=== PATIENT | male | born 1990 | race Asian ===

== ENCOUNTER 2018-12-26 14:28 | Emergency (ER) | payer OTHER ==
[~2018-12-26] VITALS: Ht 180.3 cm; Wt 65.8 kg
[2018-12-26 14:29] VITALS: BP 113/71
== END 2018-12-26 15:25 | disposition home or self-care (01) ==
LOC: ER 14:28
DX: R53.83 Other fatigue (principal)

== ENCOUNTER 2021-03-27 21:50 | Emergency (ER) | payer OTHER ==
[~2021-03-27] VITALS: Ht 177.8 cm; Wt 68.0 kg
--- NOTE | ~2021-03-27 | EMS ---
[facility] [address] [place] [address] EMS Patient Care Report Name: XENA HARRIS Room #: PRE ER M.R.#: [id number] Admission: Attend Phys: Discharge: Date of : 86 Report #: [id number] THIS REPORT FOR: //name// Report Transmitted: 03/27/2021 21:34 EMS Care Summary [place], [place] Incident [id number] @ 03/27/2021 21:22 Incident Location [address] Patient XENA HARRIS Male, 31 Years 1990 Patient Address [address] [place] [address] Chief Complaint N/V Disposition Transported No Lights/[place] Dis[place] Reason Sick Person Transported To [facility] Narrative pt found standing in front of [employer]. 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 pt went to work and took the bus to [employer] after work. he was in bathroom at [employer] and had employees call 911 for him. pt req eval at [facility]. he seats self in unit, transport w/o change. no vomiting while w/ pt. Initial Vitals @21:36P: 79,R: 20,BP: 129/84,Pain: 0/10,GCS: 15,Temp: 98.1F,SpO2: 99,Revised Trauma: 12, Assessments @21:35MENTAL:No Abnormalities,SKIN:No Abnormalities,HEENT:Head/Face: No Abnormalities,LUNG SOUNDS:General: Vomiting,General: Nausea,ABDOMEN:General: [facility] [address] [place] [address] EMS Patient Care Report Name: XENA HARRIS Room #: PRE ER M.R.#: [id number] Admission: Attend Phys: Discharge: Date of : 86 Report #: [id number] Vomiting,General: Nausea,PELVIS//GI:EXTREMITIES:PULSE:Radial: 2+ Normal,NEURO:No Abnormalities, Impression Vomiting Procedures @21:35ALS AssessmentResponse: Unchanged Timeline 21:20,Call Received 21:20,Dispatch Notified 21:22,Dispatched 21:23,En Route 21:34,On Scene 21:35,At Patient 21:35,ALS Assessment,Response: Unchanged 21:36,BP: 129/84 M,PULSE: 79,RR: 20 R,SPO2: 99 Ox,ETCO2: ,BG: ,PAIN: 0,GCS: 15, 21:37,Depart Scene 21:46,At Destination 21:59,Call Closed Disclaimer [email or web address] Copyright 2020 [employer] This EMS Care Summary contains data elements from the applicable legal record (which may be displayed differently). It is designed to provide pertinent information for the following purposes: continuity of care, clinical quality, and state data reporting. The complete legal record is available to ED staff and administrators of the receiving hospital in [employer]'s Patient Tracker. All data is provided "as is."
[2021-03-27 22:26] LABS: ABSOLUTE NEUTROPHILS 7.4 thou/uL (1.4-8.2); BASOPHILS 0.7 % (0.0-2.0); EOSINOPHILS 1.8 % (0.0-3.0); HEMATOCRIT 36.5 % (42.0-52.0); HEMOGLOBIN 12.2 gm/dL (14.0-18.0); LYMPHOCYTES 21.6 % (24.0-44.0); MCH 24.4 pg (26.0-34.0); MCHC 33.4 g/dL (28.0-37.0); MCV 73.1 fL (80.0-100.0); MONOCYTES 7.3 % (1.0-8.0); PLATELET COUNT 285 thou/uL (150-400); POLYS 68.6 % (36.0-66.0); RBC 4.99 mil/uL (4.50-6.00); RDW 15.9 % (10.5-14.5); WBC 10.8 thou/uL (4.0-11.0)
[2021-03-27 22:32] LABS: CALCIUM 8.8 mg/dL (8.5-10.1); CREATININE 0.9 mg/dL (0.7-1.3); POTASSIUM 3.6 mmol/L (3.5-5.1)
[2021-03-27 22:38] LABS: ALBUMIN 3.8 g/dL (3.4-5.0); TOTAL BILIRUBIN 0.4 mg/dL (0.2-1.0); TOTAL PROTEIN 7.1 g/dL (6.4-8.2)
[2021-03-28] MEDS ORDERED: ZOFRAN ODT4 MG PO (02:00)
[2021-03-28 04:20] VITALS: BP 112/68
== END 2021-03-28 04:30 | disposition home or self-care (01) ==
LOC: ER 21:50
PROVIDERS: Emergency Medicine
DX: R11.2 Nausea with vomiting, unspecified (principal); Z20.822 Contact with and (suspected) exposure to COVID-19